=== PATIENT | female | born 1935 | race Caucasian/White ===

== ENCOUNTER 2019-01-04 14:51 | Emergency (ER) | payer OTHER ==
[~2019-01-04] VITALS: Ht 162.6 cm; Wt 72.6 kg
[2019-01-04 14:55] VITALS: BP_SYST 177
--- NOTE | 2019-01-04 14:55 | NUR ---
BROUGHT BACK TO BED #4 AND TRIAGED. REPORT GIVEN TO AGUSTIN
--- NOTE | 2019-01-04 15:00 | NUR ---
Patient presented to ER with pain s/p fall. Patient alert and oriented, arrived with familypain 05/11. Patient states she fall at home in her hard. Patient states she was pulling weeds whe she tripped fell forward hitting right front forehead on brick wall then fell backward hitting back of head, Patient c/o pain to right wrist, right shoulder and right hip; patient denies KO and able to recall events. Patient states she has a hx of vertigo, hypothyroid, Gallbladder Sx, and breast redux Sx.
--- NOTE | 2019-01-04 15:02 | NUR ---
RASHIDA Marcelino at bedside examining patient.
[2019-01-04] MEDS ORDERED: ACETAMINOPHEN 500 MG TABLET PO ONE (15:15)
--- NOTE | 2019-01-04 15:25 | NUR ---
Patient to Radiology via wheel chair with radiology staff.
--- NOTE | 2019-01-04 15:41 | NUR ---
Patient to CT via wheelchair with radiology staff.
--- NOTE | 2019-01-04 16:00 | NUR ---
patient stated she forgot to tell Dr. Alberts about pain in neck at time of fall. Made Dr. Alberts aware
[2019-01-04] MEDS ORDERED: CYCLOBENZAPRINE HCL 10 MG TABLET (FLEXERIL) PO ONE (16:15)
--- NOTE | 2019-01-04 16:41 | NUR ---
ER Dr. Alberts at bedside discussing test results patient.
[2019-01-04] MEDS ORDERED: MORPHINE 4 MG/ML INJ. SYRINGE IM ONE (16:45)
--- NOTE | 2019-01-04 17:15 | NUR ---
Site to right elbow, left top of finger index, middle cleansed with sterile water & betadine. Site measures approximately 2cm. betadine & bandaid dressing applied. Tetanus vaccination current.
--- NOTE | 2019-01-04 17:25 | NUR ---
right arm immobilizer applied to right arm. pulse noted. Capillary refill <3 seconds. Patient has ability to move non-splinted digits. Has sensation present to affected site. Skin color within normal limits. Applied for pain management control.
--- NOTE | 2019-01-04 17:30 | NUR ---
Patient given written and verbal discharge instructions and verbalizes understanding. ER MD discussed with patient the results and treatment provided. Patient in stable condition. ID arm band removed. Rx of Ideal, Zofran, Meclizine given. Patient educated on pain management and to follow up with PMD. Pain Scale 2/10 tolerable for patient. Opportunity for questions provided and answered. Medication side effect fact sheet provided.
[2019-01-04 17:35] VITALS: BP_SYST 155
== END 2019-01-04 17:30 | disposition home or self-care (01) ==
LOC: SED 14:51
DX: S42.91XA Fracture of right shoulder girdle, part unspecified, initial encounter for closed fracture (principal); S50.311A Abrasion of right elbow, initial encounter; S60.411A Abrasion of left index finger, initial encounter; S60.413A Abrasion of left middle finger, initial encounter; S00.03XA Contusion of scalp, initial encounter; S00.83XA Contusion of other part of head, initial encounter; E07.9 Disorder of thyroid, unspecified; Z90.49 Acquired absence of other specified parts of digestive tract; Z88.0 Allergy status to penicillin; W22.8XXA Striking against or struck by other objects, initial encounter; Y93.89 Activity, other specified; Y92.89 Other specified places as the place of occurrence of the external cause; Y99.8 Other external cause status
CPT/HCPCS: 70450-TC; 73030; 96372; 99284; J2270